=== PATIENT | male | born 1980 | race Caucasian/White ===

== ENCOUNTER 2017-05-25 14:02 | Emergency (ER) | payer SELFPAY ==
[~2017-05-25] VITALS: Ht 177.8 cm; Wt 96.0 kg
[2017-05-25] MEDS ORDERED: HYDR-4001 PO (14:10)
[2017-05-25] MEDS ORDERED: KETOROLAC 60MG/2ML VIAL IM ONE (15:00)
[2017-05-25 16:46] LABS: CLARITY URINE CLEAR (CLEAR); COLOR URINE YELLOW (YELLOW); KETONES URINE TRACE (NEGATIVE); LEUKOCYTE ESTERASE URINE NEGATIVE (NEGATIVE); NITRITE URINE NEGATIVE (NEGATIVE); OCCULT BLOOD URINE NEGATIVE (NEGATIVE); PROTEIN URINE NEGATIVE (NEGATIVE); SPECIFIC GRAVITY URINE 1.023 (1.005-1.030)
[2017-05-25] MEDS ORDERED: DIAZEPAM 5 MG TABLET PO ONE (17:00)
[2017-05-25] MEDS ORDERED: HYDROCODONE/ACETAMINOPHEN 5/325MG TABLET PO ONE (20:00)
[2017-05-25 20:51] VITALS: BP 128/73
== END 2017-05-25 21:40 | disposition home or self-care (01) ==
LOC: ER 14:21
DX: M54.5 Low back pain (principal); G95.89 Other specified diseases of spinal cord; Z87.81 Personal history of (healed) traumatic fracture; M25.551 Pain in right hip
CPT/HCPCS: 72100; 72128; 72131; 73502; 81003; 96372; 99285; J1885